=== PATIENT | female | born 1955 | race African-American/Black ===

== ENCOUNTER 2022-06-20 14:04 | Emergency (ER) | payer MEDICAID, OTHER ==
[~2022-06-20] VITALS: Ht 160 cm; Wt 50.8 kg
[2022-06-20 14:04] VITALS: BP 134/77
[2022-06-20] MEDS ORDERED: DUO 0.5-3(2.5) MG/3 ML IH STA (14:14)
[2022-06-20] MEDS ORDERED: SOLU-MEDROL IV STA (14:14)
--- NOTE | 2022-06-20 14:38 | ER.PDOC ---
General Chief Complaint: General Complaint Stated Complaint: SOB TRAVEL OUT OF US: No Time seen by MD: 14:15 Source: patient Exam Limitations: no limitations History of Present Illness Initial Comments Patient is a 67-year-old female past medical history of COPD [place] and comes in for a medication refill. Patient states that last night she had an episode but was able to get a little bit of medication out of her last inhaler that helped. Patient states that she was short of breath at that time states that it was made worse with activity better with rest however is gone away she is fully asymptomatic she just needs a refill at this time of her medication. Past Medical History Medical History: COPD Surgical History: hysterectomy, tubal Family History Significant Family History: no pertinent family hx Social History Smoking: less than 1 pack/day Alcohol Use: none Drug Use: none Reviewed Nursing Reviewed: Vital Signs, Abn. Noted, Nursing Assessment Review of Systems Constitutional: no symptoms reported EENTM: no symptoms reported Respiratory: shortness of breath Cardiovascular: no symptoms reported Gastrointestinal: no symptoms reported Genitourinary: no symptoms reported Musculoskeletal: no symptoms reported Skin: no symptoms reported Psychiatric/Neurological: no symptoms reported Hematologic/Lymphatic: no symptoms reported Physical Exam General Appearance: No Apparent Distress, WD/WN EENT: eyes nml inspection, nml ENT inspection Neck: Non-Tender, Full Range of Motion Respiratory: chest non-tender, rhonchi (chronic) CVS: reg rate & rhythm, no murmur Gastrointestinal: Normal Bowel Sounds, Non Tender, Soft Back: Normal Inspection, No CVA Tenderness Extremities: Normal Range of Motion Neurologic/Psychiatric: No Motor/Sensory Deficits, Alert, Normal Mood/Affect, Oriented x 3 Skin: Normal Color Lymphatic: No Adenopathy Results/Orders Results/Orders Orders - AILEEN TAPIA MD Cbc With Auto Diff (06/20/22 14:14) Comprehensive Metabolic Panel (06/20/22 14:14) Probnp B-Type Fine Grade Operator (06/20/22 14:14) Saline Lock (06/20/22 14:14) Troponin I High Sensitivity (06/20/22 14:14) Ipratropium/Albuterol Sulfate (Duo 0.5-3 (06/20/22 14:14) Methylprednisolone Sod Succ (Solu-Medrol (06/20/22 14:14) Vital Signs Date Time Temp Pulse Resp B/P (MAP) Pulse Ox O2 Delivery O2 Flow Rate FiO2 06/20/22 14:04 98.0 90 20 134/77 (96) 93 Room Air* 0 21 06/20/22 14:04 98.0 90 20 93 06/20/22 14:04 98.0 90 20 Progress Progress Patient here for medication refill refused any work-up so she just wants the refill she is trying to get set up with a primary care doctor but she does not have 1 yet her doctor back [place] her other state told her just to go to the ER for the refill. Patient otherwise well-appearing will give her the refill.Patient also refused breathing treatment here in the ER. [id number] patient still doing well she wants her budesonide formoterol inhaled will fill that and discharge her. She was understanding when to follow- up and return to the ER. ER DEPART Departure Time of Disposition: 14:37 Disposition: 01 HOME / SELF CARE / HOMELESS Impression: Primary Impression: Medication refill Condition: Stable Patient Instructions: Chronic Obstructive Pulmonary Disease Referrals: PCP,UNKNOWN (PCP) PRIMARY CARE PROVIDER Additional Instructions: Please follow-up with your primary care provider within the next week. If you need anyone you can call Dr. Carranza at [phone]. If you have any new persistent or worsening symptoms or concerns please seek medical attention. Please take medication as prescribed Duration or Time Spent with Pa: 10 AILEEN TAPIA MD Jun 20, 2022 14:38
== END 2022-06-20 14:43 | disposition home or self-care (01) ==
LOC: ER 14:04
DX: Z76.0 Encounter for issue of repeat prescription (principal); J44.9 Chronic obstructive pulmonary disease, unspecified; F17.200 Nicotine dependence, unspecified, uncomplicated; Z90.710 Acquired absence of both cervix and uterus
CPT/HCPCS: 80053; 83880; 84484; 85025; 99283

== ENCOUNTER 2022-09-15 15:16 | Emergency (ER) | payer MEDICARE, MEDICAID ==
[~2022-09-15] VITALS: Ht 160 cm; Wt 54.0 kg
[2022-09-15 15:16] VITALS: BP 148/90
--- NOTE | 2022-09-15 15:16 | NUR ---
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
[2022-09-15 15:55] LABS: BILIRUBIN,URINE NEGATIVE (NEGATIVE)
--- NOTE | 2022-09-15 16:23 | ER.PDOC ---
General Chief Complaint: Female Urogenital Problems Stated Complaint: FEMALE Time seen by MD: 15:20 Source: patient Exam Limitations: no limitations History of Present Illness Initial Comments Patient is a 67-year-old female with past medical history of asthma and COPD who comes in with a blood and pain with urination over the past 5 days. Patient states over the past 5 days she has had dysuria and has noticed a little bit of blood in it. Patient states the pain is made worse when she urinates better when she is not urinating denies any radiation or any other symptoms or concerns at this time. Allergies: Coded Allergies: Penicillins (Verified Allergy, Unknown, ., 09/15/22) Past Medical History Medical History: asthma, COPD Surgical History: hysterectomy Family History Significant Family History: no pertinent family hx Social History Smoking: less than 1 pack/day Alcohol Use: none Drug Use: none Reviewed Nursing Reviewed: Vital Signs, Abn. Noted, Nursing Assessment Review of Systems Constitutional: no symptoms reported EENTM: no symptoms reported Respiratory: no symptoms reported Cardiovascular: no symptoms reported Gastrointestinal: no symptoms reported Genitourinary: dysuria, hematuria Musculoskeletal: no symptoms reported Skin: no symptoms reported Psychiatric/Neurological: no symptoms reported Endocrine: no symptoms reported Hematologic/Lymphatic: no symptoms reported Physical Exam General Appearance: No Apparent Distress, WD/WN EENT: eyes nml inspection, nml ENT inspection, pharynx nml Neck: nml inspection, non-tender Cardiovascular/Respiratory: Regular Rate, Rhythm, No M/R/G, Normal Peripheral Pulses, No JVD, Normal Breath Sounds, No Respiratory Distress Abdomen: Normal Bowel Sounds, Soft, Tenderness (Mild suprapubic) Back: nml inspection Extremities: Non-Tender Neurologic/Psychiatric: No Motor/Sensory Deficits, Alert, Normal Mood/Affect Skin: Normal Color Lymphatic: No Adenopathy Results/Orders Results/Orders Orders - AILEEN TAPIA MD Urinalysis (09/15/22 15:35) Urine Culture (09/15/22 15:19) Vital Signs Date Time Temp Pulse Resp B/P (MAP) Pulse Ox O2 Delivery O2 Flow Rate FiO2 09/15/22 15:16 98.5 107 20 148/90 (109) 91 Room Air* 0 21 09/15/22 15:16 98.5 107 20 91 09/15/22 15:16 98.5 107 20 Laboratory Tests Test 09/15/22 15:19 Urine Collection Type UNKNOWN Urine Color YELLOW Urine Appearance CLOUDY Urine Bilirubin NEGATIVE (NEGATIVE) Urine Ketones 1+ (NEGATIVE) H Urine Specific Burton 1.020 (1.005-1.030) Urine pH 6.0 (4.5-8.0) Urine Protein 2+ (NEGATIVE) H Urine Urobilinogen 1.0 E.U./dL (0.2) Urine Nitrate NEGATIVE (NEGATIVE) Urine Leukocyte Esterase 2+ (NEGATIVE) H Urine Glucose (Auto)(UA) NEGATIVE (NEGATIVE) Urine Blood 3+ (NEGATIVE) H Urine RBC 10-25 RBC/HPF (NONE SEEN) H Urine WBC TooNumerousToCount WBC/HPF (0-2) Urine Squamous Epithelial Cells FEW (<=FEW) Urine Bacteria MODERATE (NONE SEEN) H Progress Progress Urine hematuria we will send off urine we will continue to monitor. 1621reassessmentpatient's urine does have 2+ leukocyte Estrace with blood go- ahead and treatment send patient home with Bactrim she voiced understanding when to follow-up and when to return to the ER. ER DEPART Departure Time of Disposition: 16:22 Disposition: 01 HOME / SELF CARE / HOMELESS Impression: Primary Impression: UTI (urinary tract infection) Condition: Stable Patient Instructions: Urinary Tract Infection Referrals: PCP,UNKNOWN (PCP) PRIMARY CARE PROVIDER Additional Instructions: Follow-up with your primary care provider within the next week. If you have any new persistent or worsening symptoms or concerns seek medical attention. Please take all medications as prescribed. Duration or Time Spent with Pa: 30 Problem Qualifiers Primary Impression: UTI (urinary tract infection) Urinary tract infection type: site unspecified Hematuria presence: with hematuria Qualified Codes: N39.0 - Urinary tract infection, site not specified; R31.9 - Hematuria, unspecified AILEEN TAPIA MD Sep 15, 2022 16:23
[2022-09-15 16:25] VITALS: BP 122/53
== END 2022-09-15 16:26 | disposition home or self-care (01) ==
LOC: ER 15:16
DX: N39.0 Urinary tract infection, site not specified (principal); J44.9 Chronic obstructive pulmonary disease, unspecified; J45.909 Unspecified asthma, uncomplicated; Z90.710 Acquired absence of both cervix and uterus; Z88.0 Allergy status to penicillin
CPT/HCPCS: 81001; 87077; 87086; 87186; 99283

== ENCOUNTER 2023-08-26 20:00 | Emergency (ER) | payer MEDICARE, MEDICAID ==
[~2023-08-26] VITALS: Ht 160 cm; Wt 52.6 kg
[2023-08-26] MEDS ORDERED: DUONEB 0.5-3(2.5) MG/3 ML IH ONE (20:13)
[2023-08-26] MEDS ORDERED: DECADRON ONE (20:13)
[2023-08-26 20:18] VITALS: BP 188/104; PULSE 97; RESP 24; TEMP 98.1; O2SAT 87
[2023-08-26 20:20] VITALS: PULSE 76; PULSE 97; RESP 20; RESP 24; O2SAT 97
[2023-08-26] MEDS: DUONEB 0.5-3(2.5) MG/3 ML IH STA (20:20)
[2023-08-26] MEDS ORDERED: SUBLIMAZE 100MCG/2ML ONE ×2 (20:31→21:48)
[2023-08-26] MEDS ORDERED: VERSED ONE ×2 (20:32→21:47)
[2023-08-26] MEDS ORDERED: MAGNESIUM SULFATE 50 ML IV ONE (20:32)
[2023-08-26 20:35] VITALS: BP 175/101; PULSE 74; RESP 24; TEMP 98.1; O2SAT 91
[2023-08-26 20:40] VITALS: PULSE 88; RESP 18; O2SAT 99
[2023-08-26] MEDS ORDERED: NS 1000ML 1,000 ML ONE ×2 (20:43→22:02)
[2023-08-26] MEDS ORDERED: DIPRIVAN 100 ML IV ONE (20:46)
[2023-08-26] MEDS: DIPRIVAN 100 ML IV PRN (20:55)
[2023-08-26] MEDS ORDERED: SOLU-MEDROL ONE (20:56)
[2023-08-26] MEDS ORDERED: NS 100ML 100 ML IV ONE (20:56)
[2023-08-26] MEDS ORDERED: ROCEPHIN ONE (20:56)
[2023-08-26] MEDS ORDERED: WATER 20 ML ONE (20:57)
[2023-08-26] MEDS: SOLU-MEDROL IV STA (20:58)
[2023-08-26 21:00] VITALS: BP 144/69; PULSE 95; RESP 18; TEMP 98.1
[2023-08-26] MEDS: ROCEPHIN 1,000 MG in NS 100ML 100 ML IV STA (21:00)
[2023-08-26] MEDS: NS IV SCH (21:13)
[2023-08-26 21:28] LABS: BASOPHIL % 0.3 % (0.0-0.2); EOSINOPHIL # 0.1 10^3/uL (0.0-0.2); EOSINOPHIL % 0.6 % (0.0-5.0); HEMATOCRIT(ML) 46.4 % (36.0-46.0); HEMOGLOBIN 14.4 g/dL (12.0-15.0); IG % 0.1 % (0.00-0.50); LYMPHOCYTES # 4.74 10^3/uL1 (1.0-4.8); LYMPHOCYTES % 46.4 % (24.0-44.0); MEAN CORP HGB 33.3 pg (26-34); MEAN CORP VOLUME 107.4 fL (78-100); MONOCYTES # 0.9 10^3/uL (0.3-0.8); NEUTROPHIL # 4.5 10^3/uL (1.8-7.7); NEUTROPHILS % 43.6 % (41.0-85.0); RED BLOOD CELL 4.32 10^6/uL (4.00-5.20); RED CELL DISTRIBUTION WIDTH 13.5 % (11.5-14.5); WHITE BLOOD CELL 10.2 10^3/uL (4.5-11.0)
[2023-08-26 21:38] VITALS: BP 144/99; PULSE 78; RESP 18; TEMP 98.5; O2SAT 98
[2023-08-26] MEDS ORDERED: NS 500ML 500 ML IV ONE (21:43)
[2023-08-26] MEDS: ZEMURON IV ONE (21:44)
[2023-08-26] MEDS: VERSED IV STA (21:52)
[2023-08-26] MEDS: SUBLIMAZE 100MCG/2ML IV STA (21:52)
[2023-08-26 22:03] LABS: ALBUMIN(ML) 3.6 g/dL (3.4-5.0); ALBUMIN/GLOBULIN RATIO 0.923; ANION GAP 16.8; BUN/CREATININE RATIO 12.76 (10.0-20.0); C-REACTIVE PROTEIN 0.1 mg/dL (0.00-5.00); CALCIUM 8.9 mg/dL (8.4-10.5); CARBON DIOXIDE 23.2 mmol/L (20.0-32); CREATINE KINASE MB 2.4 ng/mL (0.5-3.6); CREATININE SERUM 0.94 mg/dL (0.59-1.40); EST GFR, NON-AA 59.4 (>/=60)
[2023-08-26 22:51] LABS: ABG OX -sO2 97.9 % (94.0-97.00); ABG PCO2 41.8 mmHg (35.0-45.0); ABG PH 7.278 (7.350-7.450); BE(B) -7.3 mmol/L (-2.0-2.0); HCO3act 19.1 mmol/L (22.0-26.0)
== END 2023-08-26 21:55 | disposition short-term general hospital (02) ==
LOC: ER 20:00
DX: J96.00 Acute respiratory failure, unspecified whether with hypoxia or hypercapnia (principal); J44.89 Other specified chronic obstructive pulmonary disease; Z90.710 Acquired absence of both cervix and uterus; Z88.0 Allergy status to penicillin
CPT/HCPCS: 99291; 96375; 96365; 71045 ×2; 80053; 85025; 36415; 85379; 84484; 87040 ×2; 83605; 84145; 82553; 83880; 82550; 86140; 93005; 82803; 36600; 94640; J7040; J7030 ×2; J1100; J3475; J0696 ×2; J2250 ×2; J3010 ×2; J2930; A4216; 94002; J3490